=== PATIENT | male | born 1995 | race American Indian/Alaskan Native ===

== ENCOUNTER 2021-05-08 13:16 | Emergency (ER) | payer SELFPAY ==
[2021-05-08 13:44] VITALS: BP 121/82
[2021-05-08] MEDS ORDERED: PENICILLIN G BENZATHINE 1.2 MILLION UNIT/2 ML INJ IM ONE (13:49)
--- NOTE | 2021-05-08 13:52 | Emergency Department Report ---
ED Male HPI - General Chief complaint: Urogenital-Male Stated complaint: STD CHECK Time Seen by Provider: 05/08/21 13:46 Source: patient Mode of arrival: Ambulatory Limitations: No Limitations - History of Present Illness Initial comments: Patient is a 26-year-old male presents emergency room with complaints of wanting treatment for syphilis. Patient states that in March he went to a clinic with his partner and states that he tested positive for syphilis. He states he never went back for treatment. He states he is noticed a mild rash to his hands. He denies any other symptoms at all. He does not report any penile discharge, urinary symptoms, pain or swelling the testicles, abdominal pain, fever, vomiting, diarrhea. No medication allergies per patient. - Related Data Previous Rx's Medication Instructions Recorded Last Taken Type Promethazine [Phenergan] 25 mg PO Q6H PRN #12 tablet 06/17/13 Unknown Rx Allergies Allergy/AdvReac Type Severity Reaction Status Date / Time grapefruit AdvReac Unknown Verified 06/16/13 20:54 ED Review of Systems ROS: Stated complaint: STD CHECK Other details as noted in HPI Comment: All other systems reviewed and negative ED Past Medical Hx - Past Medical History Hx HIV: Yes Additional medical history: "pancreas probs" - Social History Smoking Status: Current Every Day Smoker Substance Use Type: None, Marijuana - Medications Home Medications: Home Medications Medication Instructions Recorded Confirmed Last Taken Type Promethazine [Phenergan] 25 mg PO Q6H PRN #12 tablet 06/17/13 Unknown Rx ED Physical Exam - General Limitations: No Limitations General appearance: alert, in no apparent distress - Head Head exam: Present: atraumatic, normocephalic - Eye Eye exam: Present: normal appearance - ENT ENT exam: Present: mucous membranes moist - Respiratory Respiratory exam: Absent: respiratory distress, accessory muscle use - Neurological Exam Neurological exam: Present: alert, oriented X3 - Psychiatric Psychiatric exam: Present: normal affect, normal mood - Skin Skin exam: Present: warm, dry, other (faint erythematous macules present to the palms) ED Course Vital Signs 05/08/21 05/08/21 13:42 13:59 Temperature 98.6 F Pulse Rate 111 H Respiratory 20 Rate Blood Pressure 121/82 [Right] O2 Sat by Pulse 100 99 Oximetry ED Medical Decision Making - Lab Data Vital Signs 05/08/21 05/08/21 13:42 13:59 Temperature 98.6 F Pulse Rate 111 H Respiratory 20 Rate Blood Pressure 121/82 [Right] O2 Sat by Pulse 100 99 Oximetry - Medical Decision Making Patient is a 26-year-old male presents emergency room with complaints of wanting treatment for syphilis. Patient states that in March he went to a clinic with his partner and states that he tested positive for syphilis. He states he never went back for treatment. He states he is noticed a mild rash to his hands. He denies any other symptoms at all. He does not report any penile discharge, urinary symptoms, pain or swelling the testicles, abdominal pain, fever, vomiting, diarrhea. No medication allergies per patient. due to pts recent outpatient positive test, will treat pt for syphilis with IM penicillin. advised pt Please follow-up with the clinic or the health department. Please have any partner tested and treated as well. Avoid sexual intercourse. Return to emergency room for any new or worsening symptoms. Critical care attestation.: If time is entered above; I have spent that time in minutes in the direct care of this critically ill patient, excluding procedure time. ED Disposition Clinical Impression: Syphilis Disposition: HOME / SELF CARE / HOMELESS Is pt being admited?: No Does the pt Need Aspirin: No Condition: Stable Instructions: Syphilis Additional Instructions: Please follow-up with the clinic or the health department. Please have any partner tested and treated as well. Avoid sexual intercourse. Return to emergency room for any new or worsening symptoms. walk in clinic: [facility] Address: [address] [place] [id number] Referrals: [facility] [Outside] - 3-5 Days [facility] [Provider Group] - 3-5 Days Time of Disposition: 13:51 Print Language: GERMAN
== END 2021-05-08 14:04 | disposition home or self-care (01) ==
LOC: ED 13:16
DX: A53.9 Syphilis, unspecified (principal); F17.200 Nicotine dependence, unspecified, uncomplicated; F12.90 Cannabis use, unspecified, uncomplicated
CPT/HCPCS: 96372; 99282; J0561